=== PATIENT | female | born 1940 | race Caucasian/White ===

== ENCOUNTER 2017-08-23 14:49 | Inpatient (IN) | payer MEDICARE ==
[~2017-08-23] VITALS: Ht 149.9 cm; Wt 63.5 kg
[2017-08-23] MEDS ORDERED: VANCOMYCIN 1GM+NS 250ML 250 ML IV ONE (15:17)
[2017-08-23] MEDS ORDERED: SODIUM CHLORIDE 0.9% 1000ML 1,000 ML IV ONE (15:17)
[2017-08-23] MEDS ORDERED: ZOSYN 3.375GM+NS 50ML 50 ML IV ONE (15:17)
[2017-08-23 15:46] LABS: BASOPHILS % (AUTO) 0.7 % (0.0-5.0); EOSINOPHILS % (AUTO) 2.2 % (0.0-8.0); LYMPHOCYTES % (AUTO) 16.7 % (21.0-51.0); MEAN CORPUSCULAR HEMOGLOBIN 31.3 pg (27.0-33.0); MEAN CORPUSCULAR HGB CONC 34.6 g/dL (32.0-36.0); MEAN CORPUSCULAR VOLUME 90.6 fL (79-99); MONOCYTES % (AUTO) 9.9 % (3.0-13.0); NEUTROPHILS % (AUTO) 70.5 % (40.0-77.0); PLATELET COUNT (AUTO) 178 K/uL (130-400); RED BLOOD CELL COUNT(AUTO) 4.41 MIL/uL (4.00-5.50); RED CELL DISTRIBUTION WIDTH 13.1 % (11.0-15.5); WHITE BLOOD COUNT (AUTO) 7.6 K/uL (4.8-10.8)
[2017-08-23 15:53] LABS: CREATININE 1.1 mg/dL (0.5-1.5); POTASSIUM 3.9 mmol/L (3.5-5.1)
[2017-08-23 15:58] LABS: ALBUMIN 3.6 g/dL (3.5-5.0); BILIRUBIN,TOTAL 0.4 mg/dL (0.2-1.0); TOTAL PROTEIN, SERUM 7.3 g/dL (6.0-8.3)
[2017-08-23] MEDS ORDERED: TETANUS/DIPHTHERIA TOXOID [ADULT] 0.5 ML VIAL IM ONE (16:12)
[2017-08-23 16:22] LABS: INR 1.01 (0.85-1.15); PARTIAL THROMBOPLASTIN TIME 27.9 SEC (26.3-35.5); PROTHROMBIN TIME 10.6 SEC (9.6-11.6)
[2017-08-23 17:05] LABS: BILIRUBIN,URINE Negative (NEGATIVE); COLOR,URINE Yellow (YELLOW); GLUCOSE, URINE (UA) Negative (NEGATIVE); KETONES,URINE Negative (NEGATIVE); LEUKOCYTE ESTERASE ,URINE Negative (NEGATIVE); NITRATE,URINE Negative (NEGATIVE); OCCULT BLOOD,URINE Negative (NEGATIVE); PROTEIN,URINE Negative (NEGATIVE); UROBILINOGEN,URINE 0.2 mg/dL (0.2-1.0)
[2017-08-23 17:08] LABS: APPEARANCE,URINE CLEAR (CLEAR)
[2017-08-23 21:12] VITALS: BP 126/55
[2017-08-23] MEDS ORDERED: SODIUM CHLORIDE 0.9% 10 ML VIAL IVP PRN (21:45)
[2017-08-23 23:00] VITALS: BP 127/73
[2017-08-24] MEDS ORDERED: AMLO5TAB2 PO (02:12)
[2017-08-24] MEDS ORDERED: TIZA2CAP9 PO (02:12)
[2017-08-24] MEDS ORDERED: OXYC20TA41 PO (02:12)
[2017-08-24] MEDS ORDERED: FAMO-136 PO (02:12)
[2017-08-24] MEDS ORDERED: LEVO100 PO (02:12)
[2017-08-24] MEDS ORDERED: ASPI-1012 PO (02:12)
[2017-08-24] MEDS ORDERED: PREG200C PO (02:12)
[2017-08-24] MEDS ORDERED: PRAV20TA4 PO (02:12)
[2017-08-24] MEDS ORDERED: ACETAMINOPHEN 325 MG TAB PO PRN ×2 (02:45)
[2017-08-24] MEDS ORDERED: ONDANSETRON HCL 4 MG/2 ML VIAL IVP PRN (02:45)
[2017-08-24 03:00] VITALS: BP 106/44
[2017-08-24] MEDS ORDERED: VANCOMYCIN PROTOCOL PER PHARMACY IV SCH (03:15)
[2017-08-24] MEDS ORDERED: ZOSYN 3.375GM+NS 50ML 50 ML IV SCH (04:00)
[2017-08-24 07:00] VITALS: BP 113/64
[2017-08-24] MEDS: VANCOMYCIN 1GM+NS 250ML 250 ML IV SCH (09:27)
[2017-08-24 10:50] VITALS: BP 126/61
[2017-08-24] MEDS ORDERED: RENAL DOSE IV PRN (11:45)
[2017-08-24 15:37] VITALS: BP 140/76
[2017-08-24] MEDS ORDERED: HYDRALAZINE HCL 20 MG/ML VIAL IV PRN (19:00)
[2017-08-24] MEDS ORDERED: LACTULOSE 20 GM/30 ML UDCUP PO PRN (19:00)
[2017-08-24] MEDS ORDERED: TIZANIDINE HCL 2 MG TABLET PO PRN (19:00)
[2017-08-24 19:55] VITALS: BP 135/76
[2017-08-24] MEDS: PREGABALIN 100 MG CAPSULE PO SCH (21:04)
[2017-08-24] MEDS: ZOSYN 3.375GM+NS 50ML 50 ML IV SCH (21:04)
[2017-08-24] MEDS: ENOXAPARIN SODIUM 30 MG/0.3 ML SQ SCH (21:06)
[2017-08-24 23:51] VITALS: BP 108/61
[2017-08-25] VITALS (7 sets, daily range): BP systolic 105–124; BP diastolic 50–68
[2017-08-25 04:20] LABS: BASOPHILS % (AUTO) 0.7 % (0.0-5.0); EOSINOPHILS % (AUTO) 5.1 % (0.0-8.0); LYMPHOCYTES % (AUTO) 38.1 % (21.0-51.0); MEAN CORPUSCULAR HEMOGLOBIN 32.5 pg (27.0-33.0); MEAN CORPUSCULAR HGB CONC 36.1 g/dL (32.0-36.0); MONOCYTES % (AUTO) 12.8 % (3.0-13.0); NEUTROPHILS % (AUTO) 43.3 % (40.0-77.0); NUCLEATED RED BLOOD CELLS 0.1 % (0.0-0.19); PLATELET COUNT (AUTO) 165 K/uL (130-400); RED CELL DISTRIBUTION WIDTH 13.2 % (11.0-15.5); WHITE BLOOD COUNT (AUTO) 4.9 K/uL (4.8-10.8)
[2017-08-25 04:21] LABS: CREATININE 0.9 mg/dL (0.5-1.5); POTASSIUM 3.6 mmol/L (3.5-5.1)
[2017-08-25] MEDS: VANCOMYCIN 1GM+NS 250ML 250 ML IV SCH ×2 (05:32→18:35)
[2017-08-25] MEDS: LEVOTHYROXINE 88 MCG TABLET PO SCH (06:58)
[2017-08-25] MEDS: ENOXAPARIN SODIUM 30 MG/0.3 ML SQ SCH (09:08)
[2017-08-25] MEDS: FAMOTIDINE 20MG TAB 20 MG TAB PO SCH (09:09)
[2017-08-25] MEDS: AMLODIPINE BESYLATE 5 MG TAB PO SCH (09:09)
[2017-08-25] MEDS: ATORVASTATIN CALCIUM 10 MG TABLET PO SCH (09:09)
[2017-08-25] MEDS: ASPIRIN 325 MG TABLET PO SCH (09:09)
[2017-08-25] MEDS: PREGABALIN 100 MG CAPSULE PO SCH ×3 (09:10→21:52)
[2017-08-25] MEDS: ZOSYN 3.375GM+NS 50ML 50 ML IV SCH (09:15)
[2017-08-25] MEDS ORDERED: ALPRAZOLAM 0.5 MG TABLET PO PRN (14:45)
[2017-08-26] MEDS: OXYCODONE HCL 5 MG TAB PO PRN ×2 (02:58→23:20)
[2017-08-26 03:32] VITALS: BP 117/51
[2017-08-26 03:48] LABS: BASOPHILS % (AUTO) 0.8 % (0.0-5.0); EOSINOPHILS % (AUTO) 5.1 % (0.0-8.0); HEMATOCRIT 36.2 % (36-48); LYMPHOCYTES % (AUTO) 33.9 % (21.0-51.0); MEAN CORPUSCULAR HEMOGLOBIN 31.5 pg (27.0-33.0); MEAN CORPUSCULAR VOLUME 89.8 fL (79-99); MONOCYTES % (AUTO) 12.6 % (3.0-13.0); NEUTROPHILS % (AUTO) 47.6 % (40.0-77.0); PLATELET COUNT (AUTO) 149 K/uL (130-400); RED BLOOD CELL COUNT(AUTO) 4.03 MIL/uL (4.00-5.50); RED CELL DISTRIBUTION WIDTH 13.1 % (11.0-15.5)
[2017-08-26 03:53] LABS: CREATININE 0.7 mg/dL (0.5-1.5); POTASSIUM 3.8 mmol/L (3.5-5.1)
[2017-08-26] MEDS: LEVOTHYROXINE 88 MCG TABLET PO SCH (06:35)
[2017-08-26] MEDS: VANCOMYCIN 1GM+NS 250ML 250 ML IV SCH ×2 (06:37→18:01)
[2017-08-26] MEDS: ASPIRIN 325 MG TABLET PO SCH (08:02)
[2017-08-26] MEDS: AMLODIPINE BESYLATE 5 MG TAB PO SCH (08:02)
[2017-08-26] MEDS: FAMOTIDINE 20MG TAB 20 MG TAB PO SCH (08:02)
[2017-08-26] MEDS: ATORVASTATIN CALCIUM 10 MG TABLET PO SCH (08:03)
[2017-08-26] MEDS: ENOXAPARIN SODIUM 30 MG/0.3 ML SQ SCH (08:03)
[2017-08-26] MEDS: PREGABALIN 100 MG CAPSULE PO SCH ×2 (08:03→22:02)
[2017-08-26 08:17] VITALS: BP 136/54
[2017-08-26 11:14] VITALS: BP 113/47
[2017-08-26] MEDS ORDERED: GUAIFENESIN-DM 200/20 MG 10 ML PO PRN (14:15)
[2017-08-26] MEDS ORDERED: DOXY100C2 PO (14:45)
[2017-08-26] MEDS ORDERED: CEPH500C2 PO (14:45)
[2017-08-26 16:54] VITALS: BP 117/50
[2017-08-26 19:40] VITALS: BP 134/66
[2017-08-26] MEDS: FLUTICASONE PROPIONATE 50MCG/SPRAY 16 GM BOTTLE EN SCH (22:35)
[2017-08-26 23:10] VITALS: BP 122/62
[2017-08-27 03:05] VITALS: BP 125/59
[2017-08-27 05:06] LABS: BASOPHILS % (AUTO) 0.8 % (0.0-5.0); EOSINOPHILS % (AUTO) 5.7 % (0.0-8.0); HEMATOCRIT 36.5 % (36-48); LYMPHOCYTES % (AUTO) 32.1 % (21.0-51.0); MEAN CORPUSCULAR HEMOGLOBIN 31.9 pg (27.0-33.0); MEAN CORPUSCULAR HGB CONC 35.4 g/dL (32.0-36.0); MEAN CORPUSCULAR VOLUME 90.2 fL (79-99); MONOCYTES % (AUTO) 11.2 % (3.0-13.0); NEUTROPHILS % (AUTO) 50.2 % (40.0-77.0); PLATELET COUNT (AUTO) 153 K/uL (130-400); RED BLOOD CELL COUNT(AUTO) 4.05 MIL/uL (4.00-5.50); RED CELL DISTRIBUTION WIDTH 12.9 % (11.0-15.5); WHITE BLOOD COUNT (AUTO) 5.1 K/uL (4.8-10.8)
[2017-08-27 05:19] LABS: CREATININE 0.7 mg/dL (0.5-1.5)
[2017-08-27] MEDS: LEVOTHYROXINE 88 MCG TABLET PO SCH (06:30)
[2017-08-27] MEDS: VANCOMYCIN 1GM+NS 250ML 250 ML IV SCH (06:38)
[2017-08-27 07:48] VITALS: BP 134/58
[2017-08-27] MEDS: ASPIRIN 325 MG TABLET PO SCH (10:12)
[2017-08-27] MEDS: AMLODIPINE BESYLATE 5 MG TAB PO SCH (10:12)
[2017-08-27] MEDS: FAMOTIDINE 20MG TAB 20 MG TAB PO SCH (10:12)
[2017-08-27] MEDS: PREGABALIN 100 MG CAPSULE PO SCH (10:12)
[2017-08-27] MEDS: ATORVASTATIN CALCIUM 10 MG TABLET PO SCH (10:13)
[2017-08-27] MEDS: ENOXAPARIN SODIUM 30 MG/0.3 ML SQ SCH (10:15)
[2017-08-27] MEDS: FLUTICASONE PROPIONATE 50MCG/SPRAY 16 GM BOTTLE EN SCH ×2 (10:19→10:21)
[2017-08-27 11:18] VITALS: BP 132/63
== END 2017-08-27 13:50 | disposition home or self-care (01) | DRG 603 ==
LOC: EDH 14:49 → EDHIP 18:25 → 3CH 20:02
PROVIDERS: ADMIT Family Medicine; ATTEND Family Medicine
DX: L03.115 Cellulitis of right lower limb (principal); E11.22 Type 2 diabetes mellitus with diabetic chronic kidney disease; E11.51 Type 2 diabetes mellitus with diabetic peripheral angiopathy without gangrene; E11.621 Type 2 diabetes mellitus with foot ulcer; L97.519 Non-pressure chronic ulcer of other part of right foot with unspecified severity; N18.3 Chronic kidney disease, stage 3 (moderate); E03.9 Hypothyroidism, unspecified; I12.9 Hypertensive chronic kidney disease with stage 1 through stage 4 chronic kidney disease, or unspecified chronic kidney disease; E78.5 Hyperlipidemia, unspecified; I25.10 Atherosclerotic heart disease of native coronary artery without angina pectoris; Z90.710 Acquired absence of both cervix and uterus; Z88.2 Allergy status to sulfonamides
CPT/HCPCS: 36415; 73630; 73718; 80048; 80053; 80202; 81003; 83605; 85025; 85610; 85730; 87040; 90714; 93005; 93925; 93971; J1650; J2543; J3370; J7030